=== PATIENT | female | born 1985 | race Asian ===

== ENCOUNTER 2018-07-05 10:26 | Outpatient (CLI) | payer BC, OTHER ==
--- NOTE | 2018-07-05 12:03 | ULT ---
EXAM: OB ultrasound COMPARISON: None HISTORY: Intrauterine gestation. Evaluate anatomy. TECHNIQUE: Multiplanar grayscale and color Doppler transabdominal sonographic images are obtained. FINDINGS: There is a single intrauterine gestation in cephalic presentation. Cardiac Doppler demonstr ates heart tones with a heart rate of 144 beats per minute. The placenta is located anteriorly without evidence of placenta previa. Subjectively, there is a normal amount of amniotic fl uid. Amniotic fluid index was not calculated on this exam. The cervical length based on transabdominal imaging measures 3 centimeters.. biometry measurements: BPD 4.33 cm -- 19 weeks 1 day HC 15.6 cm -- 18 weeks 4 days AC 12.75 cm -- 18 weeks 2 days FL 2.77 cm -- 18 weeks 3 days The estimated gestational age by ultrasound is 18 weeks 3 days with an NAS on12/03/2018. Gestational a ge by the last menstrual period is 17 weeks 4 days. The estimated weight by ultrasound is 240 g per densities that ounces). This represents 92 perc entile for weight. There is limited evaluation of the anatomical structures due to early intrauterine gestational age. The cerebellum and visualized portions of the spine demonstrate a normal sonographic appearance. A 4 chambered heart is visualized. The stomach has a normal appearance. Kidneys are not w ell seen, but in the expected location of the kidneys, no hydronephrosis is appreciated. The urinary bladder is mostly decompressed. The cord insertion is visualized and has a normal appearance. A three-vessel cord is not delineated on this exam. No definitive anomalies are seen. IMPRESSION: 1. Single intrauterine gestation in cephalic presentation with heart tones documented. Estimat ed gestational age by ultrasound is 18 weeks 3 days with NAS on 12/03/2016. 2. Estimated weight is 240 g (8 ounces).
== END 2018-07-05 10:27 | disposition home or self-care (01) ==
LOC: SCSULT 10:26 → ULT 10:27
PROVIDERS: ATTEND Family Medicine
DX: Z34.80 Encounter for supervision of other normal pregnancy, unspecified trimester (principal); Z3A.18 18 weeks gestation of pregnancy
CPT/HCPCS: 76805

== ENCOUNTER 2018-08-08 09:08 | Outpatient (CLI) | payer BC, OTHER ==
--- NOTE | 2018-08-08 09:40 | ULT ---
GALLBLADDER ULTRASOUND: HISTORY: Right upper quadrant abdominal pain FINDINGS: The liver demonstrates homogeneous echotexture without focal mass or intrahepatic biliary ductal dila tation. No gallstones, gallbladder wall thickening or pericholecystic fluid are seen. The right kidney and visualized portions of the pancreas are normal. The common duct [id number] in diameter. No free fluid is seen in the Jimenez's pouch. IMPRESSION: Normal exam.
== END 2018-08-08 09:09 | disposition home or self-care (01) ==
LOC: SCSULT 09:08
PROVIDERS: ATTEND Family Medicine
DX: R10.11 Right upper quadrant pain (principal)
CPT/HCPCS: 76705

== ENCOUNTER 2018-12-03 23:18 | Inpatient (IN) | payer BC, MEDICAID ==
[~2018-12-03 23:18] MED LIST: Bupivacaine HCl 0.5%/Epinephrine 1:200,000/PF 30 ml Vial ONE
[2018-12-03 23:44] VITALS: BMI 30.2
[2018-12-04] MEDS ORDERED: Ondansetron PF 4 MG/2 ML Vial IVP PRN ×3 (00:12→16:15)
[2018-12-04] MEDS ORDERED: NS w/ Oxytocin 10 units 500 ML IV SCH (00:12)
[2018-12-04] MEDS ORDERED: NS / Oxytocin 40 units/1000ml 1,000 ML IV PRN (00:12)
[2018-12-04] MEDS ORDERED: Promethazine HCl 25 MG/ML VIAL IM PRN ×2 (00:12→03:20)
[2018-12-04] MEDS ORDERED: Lidocaine 1% (PF) 30 ML VIAL SC PRN (00:12)
[2018-12-04] MEDS ORDERED: Butorphanol Tartrate 1 MG/ML VIAL SLOW IVP PRN (00:12)
[2018-12-04] MEDS ORDERED: Ibuprofen 800 MG TAB PO PRN (00:12)
[2018-12-04] MEDS ORDERED: HYDROcodone/Acetaminophen 5/325 mg Tablet PO PRN ×3 (00:12→16:15)
[2018-12-04] MEDS ORDERED: hydrALAZINE 20 MG/ML VIAL SLOW IVP PRN ×2 (00:12→16:15)
[2018-12-04] MEDS ORDERED: Lactated Ringer's 1,000 ML IV SCH (00:12)
[2018-12-04 01:06] LABS: Hemoglobin 12.8 g/dL (12.0-16.0); Mean Corpuscular HGB CONC 34.6 g/dL (32.0-36.0); Mean Corpuscular Hemoglobin 29.7 pg (27.0-31.0); Mean Corpuscular Volume 85.9 fL (78.0-98.0); Mean Platelet Volume 10.1 fL (7.4-10.4); Platelet Count 151 thou/uL (130-400); RBC Distribution Width 13.3 % (11.5-14.5); Red Blood Cell (RBC) Count 4.31 mill/uL (4.20-5.40); White Blood Cell (WBC) Count 12.2 thou/uL (4.8-10.8)
[2018-12-04] MEDS ORDERED: Fentanyl 4 mcg/Bup 0.1% Cadd 100 ML ONE (01:31)
[2018-12-04 01:47] LABS: HBSAg Index 0.17 S/CO (0-0.99); Hep B Surf Ag Non-Reactive S/CO (NonReactive)
[2018-12-04] MEDS: Lactated Ringer's 1,000 ML IV SCH ×2 (02:06→17:15)
[2018-12-04] MEDS ORDERED: diphenhydrAMINE 50 MG/ML VIAL IVP PRN (03:20)
[2018-12-04] MEDS ORDERED: Lactated Ringer's 500 ML IV PRN (03:20)
[2018-12-04] MEDS ORDERED: Naloxone HCl 0.4 mg/ml Vial IVP PRN ×2 (03:20)
[2018-12-04] MEDS ORDERED: Acetaminophen 325 MG TAB PO PRN (03:20)
[2018-12-04] MEDS ORDERED: ePHEDrine/0.9% NaCl/PF SYRINGE 50 mg/10 ml SLOW IVP PRN (03:20)
[2018-12-04] MEDS ORDERED: Communication Order-Pharmacy FS SCH (03:30)
[2018-12-04] MEDS ORDERED: Fentanyl 4 mcg/Bupivacaine 0.1% Cassette 100 ML EPIDURAL SCH (03:30)
[2018-12-04 04:47] LABS: Syphilis Antibody Nonreactive (Nonreactive); Syphilis Antibody Index 0.06 S/CO (<1.00 Non-Reactive)
[2018-12-04] MEDS ORDERED: Preparation H Ointment 28 GM TUBE PR PRN (16:15)
[2018-12-04] MEDS ORDERED: Bisacodyl 10 MG SUPP PR PRN (16:15)
[2018-12-04] MEDS ORDERED: diphenhydrAMINE 25 MG CAP PO PRN (16:15)
[2018-12-04] MEDS ORDERED: NS / Oxytocin 40 units/1000ml 1,000 ML IV SCH (16:15)
[2018-12-04] MEDS ORDERED: Benzocaine-Menthol 82.5 ML CAN TOP PRN (16:15)
[2018-12-04] MEDS ORDERED: Milk Of Magnesia 30 ML UDCUP PO PRN (16:15)
[2018-12-04] MEDS ORDERED: Lanolin Ointment 7 GM TUBE TOP PRN (16:15)
[2018-12-04] MEDS ORDERED: Acetaminophen/Codeine 30-300mg Tablet PO PRN (16:15)
[2018-12-04] MEDS: Docusate Calcium (SURFAK) 240 MG CAP PO SCH ×2 (17:14→21:40)
[2018-12-04] MEDS: Ferrous Sulfate 325 MG TAB PO SCH ×2 (17:14→17:15)
[2018-12-04] MEDS: Prenatal Vitamin 1 TAB PO SCH (17:15)
[2018-12-04] MEDS: Ibuprofen 800 MG TAB PO SCH ×2 (17:15→21:40)
[2018-12-05] MEDS: Ibuprofen 800 MG TAB PO SCH (06:06)
[2018-12-05] MEDS: Prenatal Vitamin 1 TAB PO SCH (07:59)
[2018-12-05] MEDS: Docusate Calcium (SURFAK) 240 MG CAP PO SCH (07:59)
[2018-12-05] MEDS: Ferrous Sulfate 325 MG TAB PO SCH (08:02)
[2018-12-05 09:05] VITALS: BP 105/62; TEMP 97.8
== END 2018-12-05 14:50 | disposition home or self-care (01) | DRG 807 ==
LOC: L&D/OP 23:18 → L&D 12-04 00:10 → 3SW 12-04 15:49
PROVIDERS: ADMIT Family Medicine; ATTEND Family Medicine
PROC: 10E0XZZ Delivery of Products of Conception, External Approach (ICD-10-PCS; principal; 2018-12-04)
PROC: 0HQ9XZZ Repair Perineum Skin, External Approach (ICD-10-PCS; 2018-12-04)
DX: O34.219 Maternal care for unspecified type scar from previous cesarean delivery (principal); Z37.0 Single live birth; O70.0 First degree perineal laceration during delivery; Z3A.39 39 weeks gestation of pregnancy
CPT/HCPCS: 36415; 85027; 86780; 86850; 86900; 86901; 87340; J1200